=== PATIENT | male | born 1970 | race Caucasian/White ===

== ENCOUNTER 2017-10-12 10:54 | Emergency (ER) | payer BC ==
[2017-10-12 11:39] LABS: ADD MAN DIFF? NO
[2017-10-12 11:40] LABS: BILIRUBIN,URINE NEGATIVE (NEG); CLARITY,URINE CLEAR; COLOR,URINE YELLOW; GLUCOSE,URINE NEGATIVE (NEG); NITRITE,URINE NEGATIVE (NEG); PH,URINE 6.5; PROTEIN,URINE NEGATIVE (NEG-TRACE)
[2017-10-12] MEDS: IV NORMAL SALINE 1000ML BAG 1,000 ML IV ×2 (11:42→11:43)
[2017-10-12 11:43] LABS: BASO % 1 % (0-3); EOS # 0.1 x10^3/uL (0.0-0.7); EOS % 3 % (0-3); HEMOGLOBIN 14.6 g/dL (13.0-17.5); LYMPH # 1.1 x10^3/uL (1.0-4.8); LYMPH % 32 % (24-48); MEAN CORPUSCULAR HEMOGLOBIN 31 pg (25-35); MEAN CORPUSCULAR HGB CONC 35 g/dL (31-37); MEAN CORPUSCULAR VOLUME 89 fL (79-100); MONO # 0.5 x10^3/uL (0.0-1.1); MONO % 14 % (0-9); NEUT # 1.7 x10^3uL (1.8-7.7); NEUT % 51 % (31-73); PLATELET COUNT 199 x10^3/uL (140-400); RED BLOOD COUNT 4.72 x10^6/uL (4.30-5.70); RED CELL DISTRIBUTION WIDTH 12.8 % (11.5-14.5); WHITE BLOOD COUNT 3.5 x10^3/uL (4.0-11.0)
[2017-10-12] MEDS: ONDANSETRON PF 4 MG/2 ML VIAL. IV (11:44)
[2017-10-12] MEDS: DICYCLOMINE HCL 10 MG CAPSULE PO (11:45)
[2017-10-12 11:48] LABS: ANION GAP 5 (6-14); BLOOD UREA NITROGEN 13 mg/dL (8-26); BUN/CREATININE RATIO 16 (6-20); CALCIUM 8.3 mg/dL (8.5-10.1); CARBON DIOXIDE 32 mmol/L (21-32); CHLORIDE 105 mmol/L (98-107); CREATININE 0.8 mg/dL (0.7-1.3); GFR 104.1; GLUCOSE 95 mg/dL (70-99); POTASSIUM 3.8 mmol/L (3.5-5.1); SODIUM 142 mmol/L (136-145)
[2017-10-12 11:54] LABS: ALBUMIN 3.7 g/dL (3.4-5.0); ALBUMIN/GLOBULIN RATIO 1.1 (1.0-1.7); ALK PHOS 71 U/L (46-116); ALT (SGPT) 41 U/L (16-63); AST (SGOT) 23 U/L (15-37); LIPASE 99 U/L (73-393); TOTAL BILIRUBIN 0.8 mg/dL (0.2-1.0); TOTAL PROTEIN 7.1 g/dL (6.4-8.2)
[2017-10-12 12:02] LABS: BACTERIA,URINE 0 /HPF (0-FEW); SQUAMOUS EPITHELIAL CELL,UR OCC /LPF
[2017-10-12] MEDS: IOHEXOL 300 MG/ML 100ML VIAL. IV (12:29)
[2017-10-12] MEDS ORDERED: CONTRAST GIVEN MC (12:30)
== END 2017-10-12 13:46 | disposition home or self-care (01) ==
LOC: ER 10:54
DX: R19.7 Diarrhea, unspecified (principal); R11.2 Nausea with vomiting, unspecified
CPT/HCPCS: 36415; 74177; 80053; 81001; 83690; 85025; 96361; 96374; 99285-25; J2405; J7030; Q9967

== ENCOUNTER 2019-10-28 05:57 | Emergency (ER) | payer BC ==
[~2019-10-28] VITALS: Ht 175.3 cm; Wt 79.5 kg
[~2019-10-28 05:57] MED LIST: DICY10CA3 PO; ONDA4TAB10 SL
[2019-10-28 06:33] VITALS: BP 130/83
[2019-10-28] MEDS ORDERED: ALPR0.254 PO (06:35)
--- NOTE | 2019-10-28 06:35 | PHYS DOC ---
Past Medical History Past Medical History: Other Additional Past Medical Histor: HERNIATED DISC L4-L5, ESSENTIAL TREMORS, SEASONAL ALLERGIES Past Surgical History: No Surgical History Smoking Status: Former Smoker Alcohol Use: None Drug Use: None General Adult EDM: Chief Complaint: CHEST PAIN HPI: HPI: Patient is a 49-year-old male with chronic back pain and essential tremors who presents secondary to anxiety related issues. Patient states that he is felt very emotional over the last few days. He states he has a lot going on at home and this is caused anxiety. He had a virtual visit with a doctor over some back pain and was started on prednisone and muscle relaxers and since that time his emotional state has become more unstable. He denies any suicidal or homicidal thoughts. He does report palpitations and difficulty getting a deep breath. His checked several blood pressures and he was concerned that his blood pressure shot up to 150 systolic. He denies any shortness of breath or dyspnea on exertion. He denies any cough or congestion. He denies any nausea or vomiting. [] Review of Systems: Review of Systems: Constitutional: Denies fever or chills. [] Eyes: Denies change in visual acuity. [] HENT: Denies nasal congestion or sore throat. [] Respiratory: Denies cough or shortness of breath. [] Cardiovascular: Reports palpitations [] GI: Denies abdominal pain, nausea, vomiting, bloody stools or diarrhea. [] : Denies dysuria. [] Musculoskeletal: Denies back pain or joint pain. [] Integument: Denies rash. [] Neurologic: Denies headache, focal weakness or sensory changes. [] Endocrine: Denies polyuria or polydipsia. [] Lymphatic: Denies swollen glands. [] Psychiatric: Admits to anxiety [] Heart Score: Risk Factors: Risk Factors: DM, Current or recent (<one month) smoker, HTN, HLP, family history of CAD, obesity. Risk Scores: Score 0 - 3: 2.5% MACE over next 6 weeks - Discharge Home Score 4 - 6: 20.3% MACE over next 6 weeks - Admit for Clinical Observation Score 7 - 10: 72.7% MACE over next 6 weeks - Early Invasive Strategies Allergies: Allergies: Allergies Coded Allergies Type Severity Reaction Last Updated Verified No Known Drug Allergies 10/12/17 No Physical Exam: PE: Constitutional: Well developed, well nourished, no acute distress, non-toxic appearance. [] HENT: Normocephalic, atraumatic, bilateral external ears normal, oropharynx moist, no oral exudates, nose normal. [] Eyes: PERRLA, EOMI, conjunctiva normal, no discharge. [] Neck: Normal range of motion, no tenderness, supple, no stridor. [] Cardiovascular:Heart rate regular rhythm, no murmur [] Lungs & Thorax: Bilateral breath sounds clear to auscultation [] Abdomen: Bowel sounds normal, soft, no tenderness, no masses, no pulsatile masses. [] Skin: Warm, dry, no erythema, no rash. [] Back: No tenderness, no CVA tenderness. [] Extremities: No tenderness, no cyanosis, no clubbing, ROM intact, no edema. [] Neurologic: Alert and oriented X 3, normal motor function, normal sensory function, no focal deficits noted. [] Psychologic: Extremely anxious [] Current Patient Data: Vital Signs: Vital Signs Date Time Temp Pulse Resp B/P (MAP) Pulse Ox O2 Delivery O2 Flow Rate FiO2 10/28/19 06:05 65 20 139/84 (102) 100 Room Air EKG: EKG: [] Radiology/Procedures: Radiology/Procedures: [] Course & Med Decision Making: Course & Med Decision Making Pertinent Labs and Imaging studies reviewed. (See chart for details) [ED course: Evaluation reveals a 49-year-old male with an anxiety reaction. I spent approximately 15 minutes at the bedside reviewing his symptoms and helping him understand exactly what he was feeling. I believe we need to start him on a low-dose anxiolytic. I have encouraged him to follow-up with a primary care physician when possible.] Dragon Disclaimer: Dragon Disclaimer: This electronic medical record was generated, in whole or in part, using a voice recognition dictation system. Departure Departure Impression: Primary Impression: Anxiety reaction Additional Impression: Palpitations Disposition: 01 HOME, SELF-CARE Condition: STABLE Referrals: IMANI CHRISTENSEN MD (PCP) Patient Instructions: Anxiety and Panic Attacks Additional Instructions: It is very important that you follow with your primary care physician in the next week or so. Return to the emergency department with any new or concerning symptoms Scripts Alprazolam (ALPRAZOLAM) 0.25 Mg Tablet 0.5 MG PO PRN Q6HRS PRN for ANXIETY / AGITATION, #15 TAB 0 Refills Prov: GAY WEBB DO 10/28/19 GAY WEBB DO October 28, 2019 06:35
--- NOTE | 2019-10-30 07:18 | EKG ---
[facility] [address] [place] [address] Test Date: 2019-10-28 Test Time: 06:06:51 Pat Name: DYLON CROOKS Department: Room: Gender: M Claims Investigator: : 1970 Requested By: GAY WEBB Order Number: [id number] Reading MD: Aguilar Das Measurements Intervals [place] Rate: 64 P: 47 NE: 130 QRS: 52 QRSD: 90 T: 22 QT: 370 QTc: 385 Interpretive Statements SINUS RHYTHM NORMAL ECG RI6.02 No previous ECG available for comparison Electronically Signed On 10-30-2019 7:49:57 CDT by Aguilar Das
== END 2019-10-28 06:45 | disposition home or self-care (01) ==
LOC: ER 05:57
DX: F41.9 Anxiety disorder, unspecified (principal); R00.2 Palpitations; G89.29 Other chronic pain; Z87.891 Personal history of nicotine dependence
CPT/HCPCS: 93005; 99283

== ENCOUNTER → 2020-06-19 | Outpatient (CLI) | payer BC ==
[~2020-06-19] MED LIST changes: +ALPR0.254 PO; +CALC500T54 PO; +IOHEXOL 180 MG/ML 10 ML VIAL. ONE; +OMEP20CA16 PO; +PROP10TA PO; +mens multivitamin; +methylPREDNISolone ACETATE 40 MG/ML VIAL. ONE; +methylPREDNISolone ACETATE 80 MG/ML VIAL. ONE
--- NOTE | 2020-06-19 12:49 | PDOC1 ---
INITIAL PAIN CONSULT DATE OF SERVICE: DOS: DATE: 06/19/20 TIME: 12:42 CHIEF COMPLAINT: Chief Complaint: Low back and left greater than right lower extremity pain HISTORY OF PRESENT ILLNESS: 50-year-old male presents history of pain for about 10 to 12 years getting worse over the past 4 months or so with increased activity at work. Patient works for [employer] and has been on his feet 12 to 15 hours each working day over the past few months. Patient reports that his pain is increasing in the low back mostly in the left but also in the right lower extremity rating the posterior gluteus posterior lateral thigh lateral anterior thighs anterior medial lower legs to th e knees and into the medial calves as well. Patient reports no specific injury or accident he is aware of but with being more time on his feet at work become much more noticeable. Patient did have a MRI scan lumbar spine showing L4-5 circumferential bulging annulus with central to left paracentral annular tear with mildly protruded broad-based disc and flattening of the ventral thecal sac with narrowing of neural foramina. Patient scribes pain is constant sharp stabbing in the low back radiating lower extremities with tingling in the legs numbness and aching also spasms. Patient reports it wakes him sleep at night least once or twice can affect his bowel bladder control but no incontinence just increased frequency. Patient reports it does affect his body to walk and stand especially at work. Patient reports has had physical therapy in the past has been doing some exercises currently from that also sees chiropractic currently and is seen that the recently as 1 week ago. Patient tried prednisone as well as naproxen and meloxicam although the naproxen does help he has stomach ulcers and had to stop taking this within the last month or so. Patient rates his disability rating 0-10 10 being the worst is a 5 with family home responsibilities 7 with recreation and occupational activities 6 with social activity 3 with sexual behavior 1 with self-care and 5 life support activities. Patient reports no loss of motor function but significant fatigability lower extremity specially on the left with any walking or standing. PAST MEDICAL HISTORY: PMH: Essential tremors, arthritis, hearing loss PREVIOUS SURGERIES: Past Surgical Hx: Right rotator cuff repair 2014 CURRENT MEDICATIONS: Current Meds: Active Scripts Medications Dose Route/Sig Max Daily Dose Days Date Category Alprazolam 0.25 Mg Tablet 0.5 Mg PO PRN Q6HRS PRN 5/9/20 Rx Dicyclomine Hcl 10 Mg Capsule 1 Cap PO TID 10/12/17 Rx Zofran Odt (Ondansetron) 4 Mg Tab.rapdis 1 Tab SL Q8HRS 10/12/17 Rx ALLERGIES; Allergies: Coded Allergies: No Known Drug Allergies (Unverified , 10/12/17) FAMILY HISTORY: Family Hx: Essential tremors, heart disease SOCIAL HISTORY: Social Hx: Patient does not drink alcohol does not smoke not use any illegal illicit recreational drugs is lives with his spouse lives locally in [place]. Again, patient works for [employer] REVIEW OF SYSTEMS: ROS: Positive for those items mentioned in history of present illness, all systems are reviewed, otherwise negative, is complete full and well-documented on patient's chart. PHYSICAL EXAM: VS: Blood pressure is 124/86 pulse 71 respirations 18 temperature 98 point degrees Fahrenheit height 5 feet 9 inches weight is 135 pounds PE: PHYSICAL EXAMINATION: GENERAL: The patient is awake, alert, oriented, appropriate, very pleasant demeanor HEENT: Shows normocephalic, atraumatic. Extraocular movements are intact and symmetrical. Oral cavity: Mucous membranes moist and pink. Dentition is intact. NECK: Shows anterior throat supple without palpable lymphadenopathy noted. Swallow reflex symmetrical. CHEST: Shows normal on inspection. Breath sounds are clear bilaterally, no rales rhonchi or wheezes. HEART: Shows S1, S2 clear. No murmurs auscultated. ABDOMEN: Soft, nontender, nondistended, flat. No palpable organomegaly is noted. No rebound or guarding demonstrated. BACK: Shows spine grossly in the midline. Normal-appearing cervical lordotic curvature. There is slightly increased thoracic kyphosis, some minor flattening of the lumbar lordotic curvature. Lumbar paraspinous muscles show symmetrical on inspection, on palpation shows some moderate tenderness diffusely throughout the upper, middle and lower distribution of the paraspinous muscles bilaterally and also into the lower thoracic paraspinous musculature, firm and tender, but without specific trigger points, without radiation of pain. The patient has g ood rotational motion of the lumbar spine, both laterally as well as extension and flexion without significant difficulty. No tenderness over the spinous processes, sacrum or sacroiliac regions. EXTREMITIES: Lower extremities show deep tendon reflexes 2+ in the patellar and tendo calcaneus tendons. Motor exam is 5 on a scale of 5 with right dorsiflexion, extension, quadriceps and hamstring flexion and 5/5 on the left. Peripheral pulses are 1+ posterior tibial. No peripheral edema is noted bilaterally. Lower extremities are warm and dry to touch, equal in color and appearance. Straight leg raise noted to be negative bilaterally. Gaenslen's and Librado's maneuvers are negative as well. The patient is able to stand, stand on his toes without significant difficulty or loss of balance walks with a normal-appearing gait favors the left lower extremity slightly, and has a cane he is using in his right hand. SKIN: Shows warm and dry, good turgor. No edema. No sores, rashes or bruising throughout. IMPRESSION: Impression: 50-year-old male with 4-month history increasing pain left greater than right lower extremity radicular fashion MRI scan lumbar spine as noted Arthritis Essential tremor Plan: Options were discussed with the patient including conservative medical management physical therapies interventional techniques. Patient would like to pursue interventional techniques. We discussed a lumbar epidural steroid injection using description as well as anatomical models to describe the procedure. Risks were discussed including but not limited to: Bleeding, infection, possibility of epidural hematoma and subsequent neurological compromise, dural puncture, headaches, spinal cord and/or nerve damage, side effects of steroid medication, and poor results regarding pain control. Patient understands wished to proceed. Patient will return to clinic in approximate 2 weeks for follow-up, was counseled as to return appointment activity level, and side effects to be aware of. Procedure is lumbar epidural steroid injection under local anesthetic using sterile prep and drape at the L4-5 level using C-arm fluoroscopic guidance in both AP and lateral views medications injected is 120 mg Depo-Medrol + 10 mL preservative-free normal saline and 2 mL contrast- condition at discharge is stable patient tolerated procedure well had no complications. RAVI ROBERTSON MD Jun 19, 2020 12:49
== END | disposition home or self-care (01) ==
LOC: PNCL 09:30
PROVIDERS: ATTEND Anesthesiology
DX: M54.5 Low back pain (principal); M79.662 Pain in left lower leg; M79.661 Pain in right lower leg; M19.90 Unspecified osteoarthritis, unspecified site; Z98.890 Other specified postprocedural states; Z82.49 Family history of ischemic heart disease and other diseases of the circulatory system; Z79.899 Other long term (current) drug therapy
CPT/HCPCS: 62323; J1030; J1040; Q9965

== ENCOUNTER → 2020-07-03 | Outpatient (CLI) | payer BC ==
--- NOTE | 2020-07-03 10:26 | PDOC ---
Progress Note - Pain Clinic Date of Service: DOS: DATE: 07/03/20 TIME: 10: Diagnosis: Dx: Lumbar radiculopathy with lumbar degenerative disease and lumbar spinal stenosis History or Present Illness: HPI: 50-year-old male returns follow-up status post lumbar epidural steroid traction x1. Patient reports only minimal decrease in pain in the low back and the left lower extremity patient ports is more in the back and the left leg now but still worse on the left side. Patient reports it is worse with walking standing changing positions better with sitting or laying down. Patient reports it does not awaken him from sleep most nights describes the pain as aching and tight in the low back mostly on the left side some radiation to the posterior left leg and lateral thigh. Patient reports the pain is a 5 on a scale of 10 is worse over the past week 2 on average and to its least is a 5 today. Patient reports no new motor or sensory deficits no new bowel or bladder incontinence or other complaints. Physical Exam: VS: Blood pressure is 138/79 pulse 71 respirations 18 temperature 90.1 F height 5 feet 9 inches weight 176 pounds PE: PHYSICAL EXAMINATION: GENERAL: The patient is awake, alert, oriented, appropriate, very pleasant [place] anor HEENT: Shows normocephalic, atraumatic. Extraocular movements are intact and symmetrical. Oral cavity: Mucous membranes moist and pink. NECK: Shows anterior throat supple without palpable lymphadenopathy noted. Swallow reflex symmetrical. CHEST: Shows normal on inspection. Breath sounds are clear bilaterally. HEART: Shows S1, S2 clear. No murmurs auscultated. ABDOMEN: Soft, nontender, nondistended, obese. No palpable organomegaly is noted. BACK: Shows spine grossly in the midline. Normal-appearing cervical lordotic curvature. There is slightly increased thoracic kyphosis, some minor flattening of the lumbar lordotic curvature. Lumbar paraspinous muscles show symmetrical on inspection, on palpation shows some moderate tenderness diffusely throughout the upper, middle and lower distribution of the paraspinous muscles bilaterally without specific trigger points, without radiation of pain. The patient has good rotational motion of the lumbar spine, both laterally as well as extension and flexion without significant difficulty. EXTREMITIES: Lower extremities show deep tendon reflexes 2+ in the patellar and tendo calcaneus tendons. Motor exam is 5 on a scale of 5 with right dorsiflexion, extension, quadriceps and hamstring flexion and 5/5 on the left. Peripheral pulses are 1 posterior tibial. No peripheral edema is noted bilaterally. Lower extremities are warm and dry to touch, equal in color and appearance. SKIN: Shows warm and dry, good turgor. No edema. No sores, rashes or bruising throughout. Procedure: Procedure: Options discussed with the patient. Patient chart reviewed his his current medication regimen updated current review of systems updated today as well. We will proceed with a second in the series lumbar epidural steroid injection with fluoroscopic guidance. Risks were discussed including but not limited to: Bleeding, infection, possibility of epidural hematoma and subsequent neurological compromise, dural puncture, headaches, spinal cord and/or nerve damage, side effects of steroid medication, and poor results regarding pain control. Patient understands wished to proceed. Patient will return to clinic in approximate 2 weeks for follow-up was counseled as to return appointment activity level and side effects to be aware of. Medication Injected: Med Injected: Procedure is lumbar epidural steroid injection under local anesthetic using sterile prep and drape at the L4-5 level using C-arm fluoroscopic guidance in both AP and lateral views medications injected is 120 mg Depo-Medrol + 10 mL preservative-free normal saline and 2 mL contrast- condition at discharge is stable patient tolerated procedure well had no complications. Condition at Discharge: Condition at Discharge: Condition at discharge stable, patient tolerated procedure well had some spasms in the mid thoracic distribution and the upper thoracic distribution following the injection which improved with time and oral Tylenol. Otherwise no complications. RAVI ROBERTSON MD Jul 03, 2020 10:26
== END | disposition home or self-care (01) ==
LOC: PNCL 09:29
PROVIDERS: ATTEND Anesthesiology
DX: M51.16 Intervertebral disc disorders with radiculopathy, lumbar region (principal); M48.061 Spinal stenosis, lumbar region without neurogenic claudication; Z79.899 Other long term (current) drug therapy; Z87.891 Personal history of nicotine dependence
CPT/HCPCS: 62323; J1030; J1040; Q9965